=== PATIENT | male | born 1990 | race African-American/Black ===

== ENCOUNTER 2024-02-19 14:03 | Emergency (ER) | payer SELFPAY ==
[~2024-02-19] VITALS: Ht 180.3 cm; Wt 90.7 kg
[2024-02-19 14:05] VITALS: BP 133/79; TEMP 98.6
[2024-02-19] MEDS ORDERED: METHYLPREDNISOLONE SOD SUCC 125MG/2ML (ACT-O-VIAL) IV ONE (14:15)
[2024-02-19 14:28] VITALS: PULSE 86; RESP 18; O2SAT 97
[2024-02-19] MEDS: ALBUTEROL (0.5%) 2.5MG/0.5ML NEB HHN ONE (14:30)
[2024-02-19] MEDS: IPRATROPIUM BROMIDE (0.02%) 0.5MG/2.5ML NEB HHN ONE (14:31)
[2024-02-19] MEDS: METHYLPREDNISOLONE SOD SUCC 125MG/2ML (ACT-O-VIAL) IM ONE (14:35)
== END 2024-02-19 17:14 | disposition left against medical advice (07) ==
LOC: ER 14:03
DX: J45.901 Unspecified asthma with (acute) exacerbation (principal)
CPT/HCPCS: 94640; 99283; Z7610 ×4